=== PATIENT | female | born 1970 | race Caucasian/White ===

== ENCOUNTER 2021-06-01 23:09 | Emergency (ER) | payer OTHER ==
[2021-06-02 00:12] LABS: BASOPHIL 0.9 % (0-2); EOSINOPHIL 4.7 % (0-5); HCT 35.9 % (37.0-47.0); HGB 11.2 g/dl (12.5-16.0); MCH 26.7 pg (25.0-31.0); MCHC 31.2 g/dL (32.0-36.0); MCV 85.5 fL (78.0-100.0); MONOCYTE 10.7 % (0-12); MPV 10.2 fL (6.0-9.5); NEUTROPHIL 43.5 % (41-80); NRBC 0; PLT 266 K/uL (150-400); RDW 14.6 % (11.5-14.0); WBC 5.7 K/uL (4.0-10.5)
[2021-06-02 00:20] LABS: BUN 14 mg/dL (7-18); BUN/CREAT RATIO (CALC) 12.6 RATIO; C-REACTIVE PROTEIN <0.20 mg/dL (<=0.90); CHLORIDE 106 mmol/L (98-107); CO2 (BICARBONATE) 30 mmol/L (21-32); CREATININE 1.11 mg/dL (0.51-0.95); GLUCOSE 103 mg/dL (74-106)
== END 2021-06-02 01:42 | disposition home or self-care (01) ==
LOC: FER 23:09
PROVIDERS: Emergency Medicine Emergency Medical Services
DX: M79.89 Other specified soft tissue disorders (principal); J44.9 Chronic obstructive pulmonary disease, unspecified; F17.210 Nicotine dependence, cigarettes, uncomplicated
CPT/HCPCS: 36415; 71045; 80048; 83880; 85025; 85379; 86140; 93971